=== PATIENT | female | born 1975 | race Caucasian/White ===

== ENCOUNTER 2020-03-16 09:01 | Emergency (ER) | payer BC, SELFPAY ==
[2020-03-16 09:08] VITALS: BP 120/68; PULSE 69; RESP 16; TEMP 36.8; O2SAT 100
--- NOTE | 2020-03-16 09:17 | ED.EYEPROB ---
HPI - Eye Problem General Stated complaint: right eye swollen and red Time Seen by Provider: 03/16/20 09:17 Source: patient and RN notes reviewed History of Present Illness HPI Narrative: Patient is a 44-year-old female that presents the urgent care with complaints of right eye pain and redness. Patient states that it started last night while she was resting in her home. However, she does mention that she was working on her pool yesterday. Patient states that she has had some clear tearing but denies any itchiness. Denies any known trauma or injury. States that it feels better when she pulls the upper eyelid out . No other acute complaints. No acute distress noted. Patient read the plan of care. Related Data Home Medications Medication Instructions Recorded Confirmed flecainide 50 mg PO BID 03/16/20 03/16/20 norgestimate-ethinyl estradiol 1 tablet PO DAILY 03/16/20 03/16/20 [Tri-Sprintec (28)] Allergies Allergy/AdvReac Type Severity Reaction Status Date / Time No Known Allergies Allergy Verified 03/16/20 09:12 Review of Systems Review of Systems: Narrative: CONSTITUTIONAL: Denies fever, chills, or sweats. EYES: Reports of redness, tearing and slight blurry vision to the right eye ENT: Denies rhinorrhea, congestion, sore throat, or otalgia. CARDIOVASCULAR: Denies chest pain, palpitations, or edema. RESPIRATORY: Denies cough or dyspnea. GASTROINTESTINAL: Denies abdominal pain, nausea, vomiting, or diarrhea. GENITOURINARY: Denies dysuria or hematuria. SKIN: Denies rash or itching. MUSCULOSKELETAL: Denies back pain, joint pain, or myalgia. NEUROLOGIC: Denies headache, numbness, or weakness. All other systems reviewed are negative, except as documented in HPI. [facility] Family History Family History (Updated 05/19/16 @ 23:19 by DOCTOR UNKNOWN) Mother Hypertension Family history of diabetes mellitus in first degree relative Sibling Family history of diabetes mellitus in first degree relative Other Family history of blood dyscrasia Family history of malignant neoplasm Social History Social History Smoking status: Never smoker Second hand tobacco smoke exposure: No Smoking end date: 10/22/93 Alcohol intake: never Comments At the time of my signature, I reviewed and agree with the nursing past medical, surgical, social, and family history. There is no relevant family history pertinent to the patient complaint. Exam Narrative: Exam Narrative: GENERAL: This is a well-nourished, well-developed patient, in no apparent distress. HEAD: normocephalic, atraumatic. EYES: PERRL. Sclera clear/white. Vision is grossly intact. Notable pinpoint foreign body noted to the right with mild injected conjunctive a and clear tearing EARS: External ears normal. Hearing grossly intact. NOSE: External nose normal with no obvious nasal discharge, nares without redness, no rhinorrhea. THROAT: Mucous membranes moist NECK: Neck supple SKIN: warm, intact with no suspicious lesions or rash, good texture and turgor. NEURO: awake, alert, and oriented to person, place and time. There were no obvious focal neurologic abnormalities. EXTREMITIES: No clubbing, cyanosis, or edema. Course Vital Signs Vital signs: Vital Signs Temperature 98.3 F 03/16/20 09:08 Pulse Rate 69 03/16/20 09:08 Respiratory Rate 16 03/16/20 09:08 Blood Pressure 120/68 03/16/20 09:08 Pulse Oximetry 100 03/16/20 09:08 Temperature 98.3 F 03/16/20 09:08 Pulse Rate 69 03/16/20 09:08 Respiratory Rate 16 03/16/20 09:08 Blood Pressure 120/68 03/16/20 09:08 Pulse Oximetry 100 03/16/20 09:08 Reviewed Procedures FB Removal Eye Foreign Body #1: Location: eye (R) Evidence of corneal penetration: No Technique: irrigation, eye wash bottle and cotton tip swab Procedure performed under: direct visualization with magnification Patient tolerated procedure: well and no complications Fore
== END 2020-03-16 09:40 | disposition home or self-care (01) ==
PROVIDERS: Emergency Provider Nurse Practitioner Family
DX: T15.01XA Foreign body in cornea, right eye, initial encounter (principal); X58.XXXA Exposure to other specified factors, initial encounter; Z85.828 Personal history of other malignant neoplasm of skin
CPT/HCPCS: 65205; 99213; G0463

== ENCOUNTER 2020-08-17 10:29 | Emergency (ER) | payer BC, SELFPAY ==
[2020-08-17 10:45] VITALS: BP 116/75; PULSE 100; RESP 18; O2SAT 99
--- NOTE | 2020-08-17 11:04 | ED.URI ---
HPI - URI/Sore Throat General Chief Complaint: Upper Respiratory Infection Stated Complaint: head congestion/sneezing/cough Time Seen by Provider: 08/17/20 10:55 Source: patient Mode of arrival: ambulatory Limitations: no limitations History of Present Illness HPI Narrative: Shantal Collado is a 45 yo female with PMH of arthritis who comes to express care with complaints of upper respiratory symptoms that started last Sunday. The symptoms include clear drainage from sinus that started with cough feeling fatigue general discomfort in her maxillary and ethmoid sinuses, low-grade fever, she is taken only Tylenol has not improved. 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 Not feeling well EYES: Denies visual changes, redness, discharge. ENT: rhinorrhea, congestion, sore throat, otalgia. CARDIOVASCULAR: Denies chest pain, palpitations, edema. RESPIRATORY: Denies dyspnea, wheezing, cough GASTROINTESTINAL: Denies abdominal pain, nausea, vomiting, diarrhea. GENITOURINARY: Denies dysuria, hematuria, abnormal discharge SKIN: Denies rash or itching. NEUROLOGIC: Denies numbness, or focal weakness. PSYCHIATRIC: Denies anxiety or depression. [facility] Past Medical History Medical History Arthritis Chlamydia Genital warts PVCs (premature ventricular contractions) Family History Family History Mother Hypertension Family history of diabetes mellitus in first degree relative Diabetes mellitus Sibling Family history of diabetes mellitus in first degree relative Other Family history of blood dyscrasia Family history of malignant neoplasm Social History Social History Smoking status: Never smoker Second hand tobacco smoke exposure: No Smoking end date: 10/22/93 Alcohol intake: never Comments At time of signature, I agree with nursing past medical, surgical, social and family history. There is no relevant family history pertinent to the presenting complaint. Exam Narrative: Exam Narrative: GENERAL: This is a well-nourished, well-developed patient, i appears to not feel well HEAD: normocephalic, atraumatic. EYES: Sclera clear/white. Vision is grossly intact. EARS: External ears normal, auditory canals clear and without drainage, TMs normal without perforation. Hearing grossly intact. NOSE: External nose normal with nasal discharge, nares with redness, no rhinorrhea. THROAT: Mucous membranes moist, posterior pharynx mild redness NECK: Neck supple, non-tender CARDIOVASCULAR: Regular rate and rhythm without murmurs, gallops, or rubs. RESPIRATORY: Clear to auscultation. Breath sounds equal bilaterally. No wheezes, rales, or rhonchi. GASTROINTESTINAL: Abdomen soft, SKIN: warm, intact with no suspicious lesions or rash, good texture and turgor. NEURO: awake, alert, and oriented to person, place and time. There were no obvious focal neurologic abnormalities. Steady gait EXTREMITIES: Normal range of motion. BACK: Nontender without deformity Course Course Emergency Course: Patient here with appropriate respiratory symptoms does not feel has been exposed to Covid and will make that decision for testing on her own Patient tested for strep and flu which both test came back negative Started on Sudafed and Zyrtec with Geoffrey Haas for cough Follow-up with PCP Vital Signs Vital signs: Vital Signs Pulse Rate 100 08/17/20 10:45 Respiratory Rate 18 08/17/20 10:45 Blood Pressure 116/75 10
== END 2020-08-17 11:15 | disposition home or self-care (01) ==
PROVIDERS: Emergency Provider Nurse Practitioner
DX: J06.9 Acute upper respiratory infection, unspecified (principal); M19.90 Unspecified osteoarthritis, unspecified site
CPT/HCPCS: 87081; 87804; 87880; 99213; G0463

== ENCOUNTER 2021-02-01 08:32 | Outpatient (CLI) | payer OTHER, SELFPAY ==
--- NOTE | ~2021-02-01 | MM_ITS ---
EXAMINATION: MM screening david BI w [place] HISTORY: Screening TECHNIQUE: Craniocaudal and mediolateral oblique 3-D tomosynthesis images were obtained and synthetic 2-D images were generated. CAD analysis was submitted and interpreted. COMPARISON: Comparison to multiple prior studies sequentially, with oldest reviewed study dated 11/18. BREAST PARENCHYMAL COMPOSITION: The breasts are extremely dense, which lowers the sensitivity of mamm ography. FINDINGS: There is no evidence of suspicious mass, calcification, or architectural distortion to sugg est malignancy in either breast. There has been no suspicious interval change. IMPRESSION: 1. No mammographic evidence of malignancy. 2. Recommend routine screening mammography in one year. BI-RADS Category 1: Negative Reviewed, dictated and finalized at location A.
== END 2021-02-01 08:33 | disposition home or self-care (01) ==
PROVIDERS: Visit Provider Obstetrics & Gynecology
DX: Z12.31 Encounter for screening mammogram for malignant neoplasm of breast (principal)
CPT/HCPCS: 77063; 77067

== ENCOUNTER 2021-10-02 11:02 | Emergency (ER) | payer OTHER, SELFPAY ==
[2021-10-02 11:07] VITALS: BP 107/79; PULSE 85; RESP 14; TEMP 37; O2SAT 100
--- NOTE | 2021-10-02 12:30 | ED.SKABFB ---
HPI - Skin/Abscess/Foreign Bdy General Chief complaint: Skin/Abscess/Foreign Body Stated complaint: flea bite wounds right arm Time Seen by Provider: 10/02/21 12:23 Source: patient and RN notes reviewed Mode of arrival: ambulatory Limitations: no limitations History of Present Illness HPI narrative: Patient presents today complaining of pain, swelling, drainage, and rash to her right forearm. Patient was bit by multiple fleas 4 days ago from her dog. 2 days ago after scratching profusely, patient developed a rash to her arm that has been weeping ever since. She has been using Benadryl cream and calamine lotion ever since without relief. MD complaint: rash and insect bite/sting Related Data Home Medications Medication Instructions Recorded Confirmed flecainide 50 mg PO BID 03/16/20 07/11/21 cetirizine 10 mg tablet 10 mg PO DAILY PRN 07/11/21 07/11/21 Allergies Allergy/AdvReac Type Severity Reaction Status Date / Time No Known Allergies Allergy Verified 07/11/21 15:07 Review of Systems Review of Systems: CONSTITUTIONAL: Denies body aches, fever, chills, or sweats. EYES: Denies visual changes, redness, or discharge. ENT: Denies rhinorrhea, congestion, sore throat, or otalgia. CARDIOVASCULAR: Denies chest pain, palpitations, or edema. RESPIRATORY: Denies cough or dyspnea. GASTROINTESTINAL: Denies abdominal pain, nausea, vomiting, or diarrhea. GENITOURINARY: Denies dysuria or hematuria. SKIN: + Pruritic rash and swelling to right forearm. MUSCULOSKELETAL: Denies back pain, joint pain, or myalgia. NEUROLOGIC: Denies headache, numbness, tingling, or weakness. PSYCH: Denies depression or anxiety. [facility] Past Medical History Medical History Arthritis Chlamydia Genital warts PVCs (premature ventricular contractions) Family History Family History Mother Hypertension Family history of diabetes mellitus in first degree relative Diabetes mellitus Sibling Family history of diabetes mellitus in first degree relative Other Family history of blood dyscrasia Family history of malignant neoplasm Social History Social History Smoking status: Former smoker Second hand tobacco smoke exposure: No Smoking end date: 10/22/93 Alcohol intake: never Comments At time of signature, I have reviewed and agree with nursing past medical, surgical, social and family history unless otherwise noted. Please see nursing chart for further information. There is no relevant family history pertinent to the presenting complaint Exam Narrative: GENERAL: Well-appearing, well-nourished, and in no acute distress. HEAD: Normocephalic, atraumatic. EYES: EOMI. No redness or drainage. Conjunctivae normal. ENT: Mucous membranes pink and moist. NECK: Normal AROM. CHEST: No respiratory distress. EXTREMITIES: Normal range of motion. No edema. SKIN: Warm, dry. Capillary refill normal. Normal skin turgor. Right forearm is covered and a weeping, erythematous, honey crusting rash that is circumferential and extends to the wrist. Forearm is also slightly edematous. NEURO: No focal deficits. Alert and oriented x3. Gait steady. PSYCH: Normal affect. No signs of depression or anxiety. Course Vital Signs Vital signs: Vital Signs Temperature 98.6 F 10/02/21 11:07 Pulse Rate 85 10/02/21 11:07 Respiratory Rate 14 10/02/21 11:07 Blood Pressure 107/79 10/02/21 11:07 Pulse Oximetry 100 10/02/21 11:07 Temperature 98.6 F 10/02/21 11:07 Pulse Rate 85 10/02/21 11:07 Respiratory Rate 14 10/02/21 11:07 Blood Pressure 107/79 10/02/21 11:07 Pulse Oximetry 100 10/02/21 11:07 Reviewed MDM - Skin/Abscess/Foreign Bdy Differential Diagnosis Differential diagnosis: Likely urticaria, cellulitis, eczema, insect bites, impetigo and
== END 2021-10-02 12:52 | disposition home or self-care (01) ==
PROVIDERS: Emergency Provider Nurse Practitioner; PCP Nurse Practitioner Family
DX: L01.00 Impetigo, unspecified (principal); Z87.891 Personal history of nicotine dependence; M19.90 Unspecified osteoarthritis, unspecified site
CPT/HCPCS: 99213; G0463

== ENCOUNTER 2022-10-29 16:39 | Emergency (ER) | payer OTHER, SELFPAY ==
[2022-10-29 16:47] VITALS: BP 109/72; PULSE 97; RESP 16; TEMP 37.2; O2SAT 100
--- NOTE | 2022-10-29 17:16 | ED.FEMALEGU ---
HPI - Female Genitourinary General Chief complaint: Urogenital-Female Stated complaint: Urinary Problem History of Present Illness HPI Narrative: Patient presents with a 2 week history of low pelvic pressure frequent urination and occasional flank pain. Patient denies any flank pain at this visit no gross hematuria and no pelvic pain at this time. Related Data Home Medications Medication Instructions Recorded Confirmed cyclobenzaprine 10 mg tablet 10 mg PO HS 10/29/22 10/29/22 drospirenone (contraceptive) 4 mg See Rx Instructions .Route .COMPLEX 10/29/22 10/29/22 (28) tablet (Slynd) flecainide 50 mg tablet 50 mg PO BID 10/29/22 10/29/22 ibuprofen 600 mg tablet 600 mg PO TID PRN Pain 10/29/22 10/29/22 Allergies Allergy/AdvReac Type Severity Reaction Status Date / Time No Known Allergies Allergy Verified 10/29/22 17:03 Review of Systems Review of Systems: CONSTITUTIONAL: Denies fever, chills, or sweats. EYES: Denies visual changes, redness, or discharge. ENT: Denies rhinorrhea, congestion, sore throat, or otalgia. CARDIOVASCULAR: Denies chest pain, palpitations, or edema. RESPIRATORY: Denies cough or dyspnea. GASTROINTESTINAL: Denies abdominal pain, nausea, vomiting, or diarrhea. GENITOURINARY: Denies dysuria or hematuria. SKIN: Denies rash or itching. MUSCULOSKELETAL: Denies back pain, joint pain, or myalgia. NEUROLOGIC: Denies headache, numbness, or weakness. PSYCHIATRIC: Denies anxiety or depression. [facility] Past Medical History Medical History Arthritis Chlamydia Genital warts PVCs (premature ventricular contractions) Surgical History Surgical History History of cholecystectomy Family History Family History Mother Hypertension Family history of diabetes mellitus in first degree relative Diabetes mellitus Sibling Family history of diabetes mellitus in first degree relative Other Family history of blood dyscrasia Family history of malignant neoplasm Social History Social History Smoking status: Never smoker Second hand tobacco smoke exposure: No Alcohol intake: never Comments At time of signature, agree with nursing past medical, surgical, social and family history. There is no relevant family history pertinent to the presenting complaint Exam Narrative: GENERAL: Well-appearing, well-nourished, and in no acute distress. HEAD: Normocephalic, atraumatic. EYES: PERRLA and EOMI. ENT: Nares clear, no rhinorrhea or epistaxis. Mucous membranes moist. NECK: Supple. CHEST: Clear to auscultation. No respiratory distress. HEART: Regular rate and rhythm. No murmur heard. Normal peripheral pulses. ABDOMEN: Soft, nontender, nondistended, normal active bowel sounds. No suprapubic pain no flank pain EXTREMITIES: Normal range of motion. No edema. SKIN: Warm, dry, no rash. NEURO: No focal deficits. Alert and oriented x3. [place] Coma Scale Eye Opening: Spontaneous 4 [place] Coma Scale Motor: Obeys Commands 6 [place] Coma Scale Verbal: Oriented 5 Ricardo Coma Scale Total 15 Course Course Level of Care: Express Care Visit Vital Signs Vital signs: Vital Signs Temperature 37.2 C 10/29/22 16:47 Pulse Rate 97 10/29/22 16:47 Respiratory Rate 16 10/29/22 16:47 Blood Pressure 109/72 10/29/22 16:47 Pulse Oximetry 100 10/29/22 16:47 Oxygen Delivery Room Air 10/29/22 16:47 Temperature 37.2 C 10/29/22 16:47 Pulse Rate 97 10/29/22 16:47 Respiratory Rate 16 10/29/22 16:47 Blood Pressure 109/72 10/29/22 16:47 Pulse Oximetry 100 10/29/22 16:47 Oxygen Delivery Room Air 10/29/22 16:47 MDM - Female Genitourinary Differential Diagnosis Differential diagnosis: Likely urinary tract infection, bacterial vaginosis, trichomoniasis, cervici
== END 2022-10-29 17:25 | disposition home or self-care (01) ==
PROVIDERS: Emergency Provider Nurse Practitioner Family; PCP Nurse Practitioner Family
DX: N39.0 Urinary tract infection, site not specified (principal); M19.90 Unspecified osteoarthritis, unspecified site
CPT/HCPCS: 81003; 87086; 99213; G0463

== ENCOUNTER 2022-11-14 10:27 | Outpatient (CLI) | payer OTHER, SELFPAY ==
--- NOTE | ~2022-11-14 | MM_ITS ---
EXAMINATION: MM screening david BI w [place] HISTORY: Screening mammogram TECHNIQUE: Craniocaudal and mediolateral oblique 3-D tomosynthesis images were obtained and synthetic 2-D images were generated. Bilateral rotated lateral CC views. CAD analysis was submitted and interp reted. COMPARISON: 02/01/2021, 08/28/2017, 12/23/2015 bilateral screening mammogram examinations BREAST PARENCHYMAL COMPOSITION: The breasts are extremely dense, which lowers the sensitivity of mamm ography. FINDINGS: There is no evidence of suspicious mass, calcification, or architectural distortion to sugg est malignancy in either breast. There has been no suspicious interval change. IMPRESSION: 1. No mammographic evidence of malignancy. 2. Recommend routine screening mammography in one year. BI-RADS Category 1: Negative Reviewed, dictated and finalized at location A. [facility]
== END 2022-11-14 10:28 | disposition home or self-care (01) ==
LOC: ANHIMG 10:28
PROVIDERS: PCP Nurse Practitioner Family; Visit Provider Obstetrics & Gynecology
DX: Z12.31 Encounter for screening mammogram for malignant neoplasm of breast (principal)
CPT/HCPCS: 77063; 77067

== ENCOUNTER 2024-02-18 15:44 | Outpatient (CLI) | payer OTHER, SELFPAY ==
--- NOTE | ~2024-02-18 | MM_ITS ---
EXAMINATION: MM screening david BI w [place] HISTORY: Screening mammogram TECHNIQUE: Craniocaudal and mediolateral oblique 3-D tomosynthesis images were obtained and synthetic 2-D images were generated. Bilateral rotated lateral CC views. CAD analysis was submitted and interp reted. COMPARISON: November 14, 2022, February 01, 2021 bilateral screening mammogram examination BREAST PARENCHYMAL COMPOSITION: The breasts are extremely dense, which lowers the sensitivity of mamm ography. FINDINGS: There is no evidence of suspicious mass, calcification, or architectural distortion to sugg est malignancy in either breast. There has been no suspicious interval change. IMPRESSION: 1. No mammographic evidence of malignancy. 2. Recommend routine screening mammography in one year. BI-RADS Category 1: Negative Reviewed, dictated and finalized at location A.
== END 2024-02-18 15:45 | disposition home or self-care (01) ==
PROVIDERS: PCP Nurse Practitioner Family; Visit Provider Obstetrics & Gynecology
DX: Z12.31 Encounter for screening mammogram for malignant neoplasm of breast (principal)
CPT/HCPCS: 77063; 77067

== ENCOUNTER 2025-09-12 16:12 | Emergency (ER) | payer OTHER, SELFPAY ==
--- OUTSIDE RECORDS SUMMARY | 2025-09-12 16:14 | XMS_ITS | Data Portability ---
Author Organization [facility] Address [address] [place] [address] Care Team Providers Care Cereal Maker Name Role Phone SOPHIA ROLLE Roofing Supervisor JANIE ROOT Primary Care Provider Assessment Encounter Date Assessment Date Assessment LastModified by Organization Details LastModified Time 09/28/2020 09/28/2020 Verbal consent for telephone visit was obtained and phone call encounter lasted for approximately 15 min including pre/post visit charting. Not available 09/28/2020 10:55:09 Plan of Treatment Reminders Order Date Submit Date Provider Last Modified By Organization Details Last Modified Time Details Appointments None recor ded. Lab TSH, ultra -sens itive , serum 2024 025 ELLIOTT [facility], [address], [place], [address], 5 08:21:50 CMP, serum or plasm a 2024 025 LESLIE [facility], [address], [place], [address], 5 08:21:49 lipid panel , serum 2024 025 LESLIE [facility], [address], [place], [address], 5 08:21:48 CBC 2024 025 LESLIE [facility], [address], [place], [address], 5 08:21:51 TSH, ultra -sens itive , serum 2023 024 LESILEBRETT [facility], [address], [place], [address], 4 14:19:33 CMP, serum or plasm a 2023 024 LESLIE [facility], [address], [place], [address], 4 20:15:13 lipid panel , serum 2023 024 LESLIEBRETT [facility], [address], [place], [address], 4 20:15:13 CBC 2023 024 LESLIE [facility], [address], [place], [address], 4 20:15:14 TSH, ultra -sens itive , serum 2021 022 [facility], [address], [place], [address], 2 08:21:17 CMP, serum or plasm a 2021 022 LESLIE [facility], [address], [place], [address], 2 08:21:16 lipid panel , serum 2021 022 LESLIE Payton, [address], [place], [address], 2 08:21:15 CBC 2021 022 LESLIE Potter, [address], [place], [address], 2 08:21:18 TSH, ultra -sens itive , serum 2020 021 ELLIOTT [facility], [address], [place], [address], 1 07:12:04 CMP, serum or plasm a 2020 021 [facility], [address], [place], [address], 1 07:12:02 lipid panel , serum 2020 021 [facility] [address], [place], [address], 1 07:12:03 CBC 2020 021 [facility], [address], [place], [address], 1 07:12:02 Referral colon & recta l surge on refer ral 2019 020 [email or web address] Not available 1 11:44:05 Procedures colon oscop y scree ken (PROC ) 2024 025 [facility] [place], [address] [place] [address], [address], [place], [address], 5 16:56:46 Surgeries None recor ded. Imaging None recor ded. Medication Orders cyclo benza ruth 10 mg table t [id number] [address] [place], [address], 5 09:05:21 ibupr ofen 600 mg table t 2021 022 [id number], [address] [place], [address], 11:15:00 cyclo benzmirian ruth 10 mg table t 2020 021 [email or web address] [facility][id number], [address] [place], [address], 09:05:21 ibupr ofen 600 mg table t 2020 021 [facility][id number], [address] [place], [address], 11:14:11 Patient TargetsNo targets recorded. Patient Instructions Encounter Date Encounter Id Patient Instructions Last Modified By Organization Details Last Modified Time 09/28/2020 [id number] Increase activit y level to get exercise most days of the week. Work on eating more fresh fruit, veggies and lean protein and less packaged foods. increase water intake Not available 09/28/2020 10:56:34 follow up as needed Not availa ble 09/28/2020 10:56:38 09/29/2021 [id number] Cont on current medications. 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 Not available 09/29/2021 11:01:11 follow up as nee ded, yearly to keep established with provider Not available 09/29/2021 10:49:38 10/03/2022 [id number] premature heartb eat: care instructions Not available 10/03/2022 11:19:36 Cont on current medications. 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 Not available 10/03/2022 11:07:37 follow up as nee ded, yearly to keep established with provider Not available 10/03/2022 11:07:37 11/27/2023 [id number] temporomandibula r disorder: care instructions Not available 11/27/2023 11:05:37 Increase intake of fresh fruits, and vegetables. Avoid packaged foods and fast foods. Follow a low salt diet, drink at least 8-10 8oz glasses of water a day, exercise most days of the week. Take all medications as prescribed. Keep appointments with PCP and all specialists. Not available 11/27/2023 11:06:15 follow up as nee ded, yearly to keep established with provider Not available 11/27/2023 11:06:30 11/27/2024 [id number] premature heartb eat: care instructions Not available 11/27/2024 09:28:20 Increase intake of fresh fruits, and vegetables. Avoid packaged foods and fast foods. Follow a low salt diet, drink at least 8-10 8oz glasses of water a day, exercise most days of the week. Take all medications as prescribed. Keep appointments with PCP and all specialists. Not available 11/27/2024 09:28:27 follow up as nee ded, yearly to keep established with provider [email or web address] Not available 11/27/2024 09:21:12 Reason for Referral Colon & Rectal Surgeon Refer ral for Rectal pain Referring Physician: Janie Root, Family Medicine, Encounter Date: 09/28/2020 Results Created Date Observation Date Name Description Value Unit Range Abnormal Flag Note LastModifiedBy Organization Detail LastModifiedTime 09/29/20 21 09/30/2021 COMP. METAB OLIC PANEL (14) glucose 91 mg/dL 65-99 Not Available [facility] ([facility]) [address] [place], [address], 09/30/2021 07:12:02 09/29/20 21 09/30/2021 COMP. METAB OLIC PANEL (14) BUN 17 mg/dL 6-24 Not Available [facility] ([facility]) [address] [place], [address], 09/30/2021 07:12:02 09/29/20 21 09/30/2021 COMP. METAB OLIC PANEL (14) creatinine 0.70 mg/dL 0.57-1 .00 Not Available [facility] ([facility]) [address] [place], [address], 09/30/2021 07:12:02 12/09/20 21 09/30/2021 COMP. METAB OLIC PANEL (14) eGFR if nonafricn AM 104 mL/mi n/1.7 3 >59 Not Available [facility] ([facility]) [address] [facility], [place], [address], 09/30/2021 07:12:02 09/29/20 21 09/30/2021 COMP. METAB OLIC PANEL (14) eGFR if africn AM 119 mL/mi n/1.7 3 >59 In accor dance with recom menda tions from the NKF-A SN Task force , [facility] is in the proce ss of updat ing its eGFR calcu latio n to the 2020 CKD-E PI creat inine equat ion that estim ates kidne y funct ion witho ut a race varia ble. Not Available [facility] ([facility]) [address] [facility], [place], [address], 09/30/2021 07:12:02 09/29/20 21 09/30/2021 COMP. METAB OLIC PANEL (14) BUN/creatini ne ratio 24 9-23 above high normal Not Available [facility] ([facility]) [address] [place], [address], 09/30/2021 07:12:02 09/29/20 21 09/30/2021 COMP. METAB OLIC PANEL (14) sodium 146 mmol/ L 134-14 4 above high normal Not Available [facility] ([facility]) [address] [place], [address], 09/30/2021 07:12:02 09/29/20 21 09/30/2021 COMP. METAB OLIC PANEL (14) potassium 4.1 mmol/ L 3.5-5. 2 Not Available [facility] ([facility]) [address] [place], [address], 09/30/2021 07:12:02 09/29/20 21 09/30/2021 COMP. METAB OLIC PANEL (14) chloride 110 mmol/ L 96-106 above high normal Not Available [facility] ([facility]) [address] [facility] [place], [address], 09/30/2021 07:12:02 09/29/20 21 09/30/2021 COMP. METAB OLIC PANEL (14) carbon dioxide, total 19 mmol/ L 20-29 below low normal Not Available [facility] ([facility]) [address] [facility] [place], [address], 09/30/2021 07:12:02 09/29/20 21 09/30/2021 COMP. METAB OLIC PANEL (14) calcium 9.2 mg/dL 8.7-10 .2 Not Available [facility] ([facility]) [address] [facility] [place], [address], 09/30/2021 07:12:02 09/29/20 21 09/30/2021 COMP. METAB OLIC PANEL (14) protein, total 7.2 g/dL 6.0-8. 5 Not Available [facility] ([facility]) [address] [facility] [place], [address], 09/30/2021 07:12:02 09/29/20 21 09/30/2021 COMP. METAB OLIC PANEL (14) albumin 4.9 g/dL 3.8-4. 8 above high normal Not Available [facility] ([facility]) [address] [place], [address], 09/30/2021 07:12:02 09/29/20 21 09/30/2021 COMP. METAB OLIC PANEL (14) globulin, total 2.3 g/dL 1.5-4. 5 Not Available [facility] ([facility]) [address] [facility] [place], [address], 09/30/2021 07:12:02 09/29/20 21 09/30/2021 COMP. METAB OLIC PANEL (14) A/G ratio 2.1 1.2-2. 2 Not Available [facility] ([facility]) [address] [facility] [place], [address], 09/30/2021 07:12:02 09/29/20 21 09/30/2021 COMP. METAB OLIC PANEL (14) bilirubin, total 0.6 mg/dL 0.0-1. 2 Not Available [facility] ([facility]) [address] [facility] [place], [address], 09/30/2021 07:12:02 09/29/20 21 09/30/2021 COMP. METAB OLIC PANEL (14) alkaline phosphatase 97 IU/L 44-121 Ple ase note refer ence inter joan blankenship e Not Available [facility] ([facility]) [address] [facility] [place], [address], 09/30/2021 07:12:02 09/29/20 21 09/30/2021 COMP. METAB OLIC PANEL (14) AST (SGOT) 28 IU/L 0-40 Not Available [facility] ([facility]) [address] [facility] [place], [address], 09/30/2021 07:12:02 09/29/20 21 09/30/2021 COMP. METAB OLIC PANEL (14) ALT (SGPT) 18 IU/L 0-32 Not Available [facility] ([facility]) [address] [place], [address], 09/30/2021 07:12:02 09/29/20 21 09/30/2021 CBC, NO DIFFE RENTI AL/PL ATELE T WBC 6.9 x10e3 /uL 3.4-10 .8 Not Available [facility] ([facility]) [address] [facility] [place], [address], 09/30/2021 07:12:02 09/29/20 21 09/30/2021 CBC, NO DIFFE RENTI AL/PL ATELE T RBC 4.84 x10e6 /uL 3.77-5 .28 Not Available [facility] ([facility]) [address] [facility], [place], [address], 09/30/2021 07:12:02 09/29/2009/30/2021 CBC, NO DIFFE RENTI AL/PL ATELE T hemoglobin 14.4 g/dL 11.1-1 5.9 Not Available [facility] ([facility]) [address] [facility], [place], [address], 09/30/2021 07:12:02 09/29/2009/30/2021 CBC, NO DIFFE RENTI AL/PL ATELE T hematocrit 42.8 % 34.0-4 6.6 Not Available [facility] ([facility]) [address] [place], [address], 09/30/2021 07:12:02 09/29/2009/30/2021 CBC, NO DIFFE RENTI AL/PL ATELE T MCV 88 fL 79-97 Not Available [facility] ([facility]) [address] [place], [address], 09/30/2021 07:12:02 09/29/2009/30/2021 CBC, NO DIFFE RENTI AL/PL ATELE T MCH 29.8 pg 26.6-3 3.0 Not Available [facility] ([facility]) [address] [place], [address], 09/30/2021 07:12:02 09/29/2009/30/2021 CBC, NO DIFFE RENTI AL/PL ATELE T MCHC 33.6 g/dL 31.5-3 5.7 Not Available [facility] ([facility]) [address] [place], [address], 09/30/2021 07:12:02 09/29/2009/30/2021 CBC, NO DIFFE RENTI AL/PL ATELE T RDW 12.4 % 11.7-1 5.4 Not Available [facility] ([facility]) [address] [place], [address], 09/30/2021 07:12:02 09/29/20 21 09/30/2021 CBC, NO DIFFE RENTI AL/PL ATELE T NRBC BOOM SUPERVISOR Not Available [facility] ([facility]) [address] [place], [address], 09/30/2021 07:12:02 09/29/20 21 09/30/2021 LIPID PANEL cholesterol, total 157 mg/dL 100-19 9 Not Available [facility] ([facility]) [address] [place], [address], 09/30/2021 07:12:03 09/29/20 21 09/30/2021 LIPID PANEL triglyceride s 58 mg/dL 0-149 Not Available [facility] ([facility]) [address] [place], [address], 09/30/2021 07:12:03 09/29/20 21 09/30/2021 LIPID PANEL HDL cholesterol 47 mg/dL >39 Not Available [facility] ([facility]) [address] [place], [address], 09/30/2021 07:12:03 09/29/20 21 09/30/2021 LIPID PANEL VLDL cholesterol raquel 12 mg/dL 5-40 Not Available [facility] ([facility]) [address] [place], [address], 09/30/2021 07:12:03 09/29/20 21 09/30/2021 LIPID PANEL [facility] 98 mg/dL 0-99 Not Available [facility] ([facility]) [address] [place], [address], 09/30/2021 07:12:03 09/29/20 21 09/30/2021 LIPID PANEL comment: BOOM SUPERVISOR Not Available [facility] ([facility]) [address] [facility], [place], [address], 09/30/2021 07:12:03 09/29/20 21 09/30/2021 TSH RFX ON ABNOR MAL TO FREE T4 TSH 1.010 uIU/m L 0.450- 4.500 Not Available [facility] ([facility]) [address] [facility], [place], [address], 09/30/2021 07:12:04 10/03/20 22 10/04/2022 LIPID PANEL cholesterol, total 155 mg/dL 100-19 9 Not Available [facility] ([facility]) [address] [facility], [place], [address], 10/04/2022 08:21:15 10/03/20 22 10/04/2022 LIPID PANEL triglyceride s 47 mg/dL 0-149 Not Available [facility] ([facility]) [address] [place], [address], 10/04/2022 08:21:15 10/03/20 22 10/04/2022 LIPID PANEL HDL cholesterol 48 mg/dL >39 Not Available [facility] ([facility]) [address] [facility], [place], [address], 10/04/2022 08:21:15 10/03/20 22 10/04/2022 LIPID PANEL VLDL cholesterol raquel 10 mg/dL 5-40 Not Available [facility] ([facility]) [address] [place], [address], 10/04/2022 08:21:15 10/03/20 22 10/04/2022 LIPID PANEL LDL chol calc [facility] 97 mg/dL 0-99 Not Available [facility] ([facility]) [address] [place], [address], 10/04/2022 08:21:15 10/03/20 22 10/04/2022 COMP. METAB OLIC PANEL (14) glucose 79 mg/dL 70-99 Not Available [facility] ([facility]) [address] [place], [address], 10/04/2022 08:21:16 10/03/20 22 10/04/2022 COMP. METAB OLIC PANEL (14) BUN 12 mg/dL 6-24 Not Available [facility] ([facility]) [address] [place], [address], 10/04/2022 08:21:16 10/03/20 22 10/04/2022 COMP. METAB OLIC PANEL (14) creatinine 0.71 mg/dL 0.57-1 .00 Not Available [facility] ([facility]) [address] [place], [address], 10/04/2022 08:21:16 10/03/20 22 10/04/2022 COMP. METAB OLIC PANEL (14) eGFR 105 mL/mi n/1.7 3 >59 Not Available [facility] ([facility]) [address] [place], [address], 10/04/2022 08:21:16 10/03/20 22 10/04/2022 COMP. METAB OLIC PANEL (14) BUN/creatini ne ratio 17 9-23 Not Available [facility] ([facility]) [address] [place], [address], 10/04/2022 08:21:16 10/03/20 22 10/04/2022 COMP. METAB OLIC PANEL (14) sodium 141 mmol/ L 134-14 4 Not Available [facility] ([facility]) [address] [place], [address], 10/04/2022 08:21:16 10/03/20 22 10/04/2022 COMP. METAB OLIC PANEL (14) potassium 4.0 mmol/ L 3.5-5. 2 Not Available [facility] ([facility]) [address] [place], [address], 10/04/2022 08:21:16 10/03/20 22 10/04/2022 COMP. METAB OLIC PANEL (14) chloride 107 mmol/ L 96-106 above high normal Not Available [facility] ([facility]) [address] [place], [address], 10/04/2022 08:21:16 10/03/20 22 10/04/2022 COMP. METAB OLIC PANEL (14) carbon dioxide, total 21 mmol/ L 20-29 Not Available [facility] ([facility]) [address] [place], [address], 10/04/2022 08:21:16 10/03/20 22 10/04/2022 COMP. METAB OLIC PANEL (14) calcium 9.1 mg/dL 8.7-10 .2 Not Available [facility] ([facility]) [address] [place], [address], 10/04/2022 08:21:16 10/03/20 22 10/04/2022 COMP. METAB OLIC PANEL (14) protein, total 7.4 g/dL 6.0-8. 5 Not Available [facility] ([facility]) [address] [place], [address], 10/04/2022 08:21:16 10/03/20 22 10/04/2022 COMP. METAB OLIC PANEL (14) albumin 4.9 g/dL 3.8-4. 8 above high normal Not Available [facility] ([facility]) [address] [place], [address], 10/04/2022 08:21:16 10/03/20 22 10/04/2022 COMP. METAB OLIC PANEL (14) globulin, total 2.5 g/dL 1.5-4. 5 Not Available [facility] ([facility]) [address] [facility], [place], [address], 10/04/2022 08:21:16 10/03/20 22 10/04/2022 COMP. METAB OLIC PANEL (14) A/G ratio 2.0 1.2-2. 2 Not Available [facility] ([facility]) [address] [facility], [place], [address], 10/04/2022 08:21:16 10/03/20 22 10/04/2022 COMP. METAB OLIC PANEL (14) bilirubin, total 0.4 mg/dL 0.0-1. 2 Not Available [facility] ([facility]) [address] [place], [address], 10/04/2022 08:21:16 10/03/20 22 10/04/2022 COMP. METAB OLIC PANEL (14) alkaline phosphatase 95 IU/L 44-121 Not Available [facility] ([facility]) [address] [facility], [place], [address], 10/04/2022 08:21:16 10/03/20 22 10/04/2022 COMP. METAB OLIC PANEL (14) AST (SGOT) 24 IU/L 0-40 Not Available [facility] ([facility]) [address] [place], [address], 10/04/2022 08:21:16 10/03/20 22 10/04/2022 COMP. METAB OLIC PANEL (14) ALT (SGPT) 18 IU/L 0-32 Not Available [facility] ([facility]) [address] [place], [address], 10/04/2022 08:21:16 10/03/20 22 10/04/2022 TSH RFX ON ABNOR MAL TO FREE T4 TSH 1.230 uIU/m L 0.450- 4.500 Not Available [facility] ([facility]) [address] [place], [address], 10/04/2022 08:21:17 10/03/20 22 10/04/2022 CBC, NO DIFFE RENTI AL/PL ATELE T WBC 6.1 x10e3 /uL 3.4-10 .8 Not Available [facility] ([facility]) [address] [facility], [place], [address], 10/04/2022 08:21:17 10/03/20 22 10/04/2022 CBC, NO DIFFE RENTI AL/PL ATELE T RBC 4.53 x10e6 /uL 3.77-5 .28 Not Available [facility] ([facility]) [address] [place], [address], 10/04/2022 08:21:17 10/03/20 22 10/04/2022 CBC, NO DIFFE RENTI AL/PL ATELE T hemoglobin 13.3 g/dL 11.1-1 5.9 Not Available [facility] ([facility]) [address] [place], [address], 10/04/2022 08:21:17 10/03/20 22 10/04/2022 CBC, NO DIFFE RENTI AL/PL ATELE T hematocrit 40.7 % 34.0-4 6.6 Not Available [facility] ([facility]) [address] [place], [address], 10/04/2022 08:21:17 10/03/20 22 10/04/2022 CBC, NO DIFFE RENTI AL/PL ATELE T MCV 90 fL 79-97 Not Available [facility] ([facility]) [address] [place], [address], 10/04/2022 08:21:17 10/03/20 22 10/04/2022 CBC, NO DIFFE RENTI AL/PL ATELE T MCH 29.4 pg 26.6-3 3.0 Not Available [facility] ([facility]) [address] [place], [address], 10/04/2022 08:21:17 10/03/20 22 10/04/2022 CBC, NO DIFFE RENTI AL/PL ATELE T MCHC 32.7 g/dL 31.5-3 5.7 Not Available [facility] ([facility]) [address] [facility], [place], [address], 10/04/2022 08:21:17 10/03/20 22 10/04/2022 CBC, NO DIFFE RENTI AL/PL ATELE T RDW 12.4 % 11.7-1 5.4 Not Available [facility] ([facility]) [address] [facility], [place], [address], 10/04/2022 08:21:17 11/27/19 24 11/27/2023 LIPID PANEL cholesterol, total 154 mg/dL 100-19 9 Not Available [facility] Department [address] [place], [address], 11/27/2023 20:15:13 11/27/19 24 11/27/2023 LIPID PANEL triglyceride s 60 mg/dL 0-149 Not Available [facility] Department [address] [place], [address], 11/27/2023 20:15:13 11/27/19 24 11/27/2023 LIPID PANEL HDL cholesterol 53 mg/dL 40-999 Not Available [facility] Department [address] [place], [address], 11/27/2023 20:15:13 11/27/19 24 11/27/2023 LIPID PANEL VLDL cholesterol raquel 12 mg/dL 5-40 Not Available [facility] Department [address] [place], [address], 11/27/2023 20:15:13 11/27/19 24 11/27/2023 LIPID PANEL LDL chol calc [facility] 97 mg/dL 0-99 Not Available [facility] Department [address] [place] [address], [address], 11/27/2023 20:15:13 11/27/19 24 11/27/2023 COMP. METAB OLIC PANEL (14) glucose 74 mg/dL 70-99 Not Available [facility] Department [address] [place] [address], [address], 11/27/2023 20:15:13 11/27/19 24 11/27/2023 COMP. METAB OLIC PANEL (14) BUN 11 mg/dL 6-24 Not Available [facility] Department [address] [place] [address], [address], 11/27/2023 20:15:13 11/27/19 24 11/27/2023 COMP. METAB OLIC PANEL (14) creatinine 0.50 mg/dL 0.76-1 .27 below low normal Not Available [facility] Department [address] [place] [address], [address], 11/27/2023 20:15:13 11/27/19 24 11/27/2023 COMP. METAB OLIC PANEL (14) eGFR 115 >=60 Units for eGFR value s are mL/mi n/1.7 3 The eGFR Calcu latio n has not been valid ated for patie nts under the age of 18. If test resul ts are displ ayed for a patie nt under the age of 18, disre maximiliano that value . Not Available [facility] Department [address] [place] [address], [address], 11/27/2023 20:15:13 11/27/19 24 11/27/2023 COMP. METAB OLIC PANEL (14) BUN/creatini ne ratio 22 9-23 Not Available [facility] Department [address] [place] [address], [address], 11/27/2023 20:15:13 11/27/19 24 11/27/2023 COMP. METAB OLIC PANEL (14) sodium 141 mmol/ L 134-14 4 Not Available [facility] [address] [place], [address], 11/27/2023 20:15:13 11/27/19 24 11/27/2023 COMP. METAB OLIC PANEL (14) potassium 3.9 mmol/ L 3.5-5. 2 Not Available [facility] [address] [place], [address], 11/27/2023 20:15:13 11/27/19 24 11/27/2023 COMP. METAB OLIC PANEL (14) chloride 106 mmol/ L 96-106 Not Available [facility] Department [address] [place] [address], [address], 11/27/2023 20:15:13 11/27/19 24 11/27/2023 COMP. METAB OLIC PANEL (14) carbon dioxide, total 21 mmol/ L 20-29 Not Available [facility] Department [address] [place] [address], [address], 11/27/2023 20:15:13 11/27/19 24 11/27/2023 COMP. METAB OLIC PANEL (14) calcium 9.2 mg/dL 8.7-10 .2 Not Available [facility] Department [address] [place], [address], 11/27/2023 20:15:13 11/27/19 24 11/27/2023 COMP. METAB OLIC PANEL (14) protein, total 7.0 g/dL 6.0-8. 5 Not Available [facility] Department [address] [place], [address], 11/27/2023 20:15:13 11/27/19 24 11/27/2023 COMP. METAB OLIC PANEL (14) albumin 4.6 g/dL 3.9-4. 9 Not Available [facility] Department [address] [place], [address], 11/27/2023 20:15:13 11/27/19 24 11/27/2023 COMP. METAB OLIC PANEL (14) globulin, total 2.4 g/dL 1.5-4. 5 Not Available [facility] Department [address] [place], [address], 11/27/2023 20:15:13 11/27/19 24 11/27/2023 COMP. METAB OLIC PANEL (14) A/G ratio 1.9 1.2-2. 2 Not Available [facility] Department [address] [place], [address], 11/27/2023 20:15:13 11/27/19 24 11/27/2023 COMP. METAB OLIC PANEL (14) bilirubin, total 0.5 mg/dL 0.0-1. 2 Not Available [facility] Department [address] [place] [address], [address], 11/27/2023 20:15:13 11/27/19 24 11/27/2023 COMP. METAB OLIC PANEL (14) alkaline phosphatase 84 IU/L 44-121 Not Available [facility] Department [address] [place], [address], 11/27/2023 20:15:13 11/27/19 24 11/27/2023 COMP. METAB OLIC PANEL (14) AST (SGOT) 27 IU/L 0-40 Not Available [facility] Department [address] [place] [address], [address], 11/27/2023 20:15:13 11/27/19 24 11/27/2023 COMP. METAB OLIC PANEL (14) ALT (SGPT) 20 IU/L 0-32 Not Available [facility] [address] [place] [address], [id number], 11/27/2023 20:15:13 11/27/19 24 11/27/2023 CBC, NO DIFFE RENTI AL/PL ATELE T WBC 8.4 x10e3 /uL 3.4-10 .8 Not Available [facility] [address] [place], [address], 11/27/2023 20:15:14 11/27/19 24 11/27/2023 CBC, NO DIFFE RENTI AL/PL ATELE T RBC 4.46 x10e6 /uL 3.77-5 .28 Not Available [facility] [address] [place], [address], 11/27/2023 20:15:14 11/27/19 24 11/27/2023 CBC, NO DIFFE RENTI AL/PL ATELE T hemoglobin 12.9 g/dL 11.1-1 5.9 Not Available [facility] [address] [place], [address], 11/27/2023 20:15:14 11/27/19 24 11/27/2023 CBC, NO DIFFE RENTI AL/PL ATELE T hematocrit 39.9 % 34.0-4 6.6 Not Available [facility] Department [address] [place], [address], 11/27/2023 20:15:14 11/27/19 24 11/27/2023 CBC, NO DIFFE RENTI AL/PL ATELE T MCV 90 fL 79-97 Not Available [facility] [address] [place], [address], 11/27/2023 20:15:14 11/27/19 24 11/27/2023 CBC, NO DIFFE RENTI AL/PL ATELE T MCH 28.9 pg 26.6-3 3.0 Not Available [facility] [address] [place], [address], 11/27/2023 20:15:14 11/27/19 24 11/27/2023 CBC, NO DIFFE RENTI AL/PL ATELE T MCHC 32.3 g/dL 31.5-3 5.7 Not Available [facility] [address] [place], [address], 11/27/2023 20:15:14 11/27/19 24 11/27/2023 CBC, NO DIFFE RENTI AL/PL ATELE T RDW 13.3 % 11.5-1 4.5 Not Available [facility] [address] [place], [address], 11/27/2023 20:15:14 11/27/19 24 11/27/2023 CBC, NO DIFFE RENTI AL/PL ATELE T NRBC 0 % 0-0 Not Available [facility] [address] [place], [address], 11/27/2023 20:15:14 11/27/19 24 11/28/2023 TSH RFX ON ABNOR MAL TO FREE T4 TSH 1.720 uIU/m L 0.450- 4.500 Not Available [facility] ([facility]) [address] [place], [address], 11/28/2023 14:19:33 12/18/19 25 12/19/2024 LIPID PANEL cholesterol, total 127 mg/dL 100-19 9 Not Available [facility] ([facility]) [address] [place], [address], 12/19/2024 08:21:48 12/18/19 25 12/19/2024 LIPID PANEL triglyceride s 53 mg/dL 0-149 Not Available [facility] ([facility]) [address] [place], [address], 12/19/2024 08:21:48 12/18/19 25 12/19/2024 LIPID PANEL HDL cholesterol 41 mg/dL >39 Not Available [facility] ([facility]) [address] [place], [address], 12/19/2024 08:21:48 12/18/19 25 12/19/2024 LIPID PANEL VLDL cholesterol raquel 12 mg/dL 5-40 Not Available [facility] ([facility]) [address] [place], [address], 12/19/2024 08:21:48 12/18/19 25 12/19/2024 LIPID PANEL LDL [facility] 74 mg/dL 0-99 Not Available [facility] ([facility]) [address] [facility], [place], [address], 12/19/2024 08:21:48 12/18/19 25 12/19/2024 COMP. METAB OLIC PANEL (14) glucose 80 mg/dL 70-99 Not Available [facility] ([facility]) [address] [place], [address], 12/19/2024 08:21:49 12/18/19 25 12/19/2024 COMP. METAB OLIC PANEL (14) BUN 13 mg/dL 6-24 Not Available [facility] ([facility]) [address] [place], [address], 12/19/2024 08:21:49 12/18/19 25 12/19/2024 COMP. METAB OLIC PANEL (14) creatinine 0.61 mg/dL 0.57-1 .00 Not Available [facility] ([facility]) [address] [place], [address], 12/19/2024 08:21:49 12/18/19 25 12/19/2024 COMP. METAB OLIC PANEL (14) eGFR 109 mL/mi n/1.7 3 >59 Not Available [facility] ([facility]) [address] [place], [address], 12/19/2024 08:21:49 12/18/19 25 12/19/2024 COMP. METAB OLIC PANEL (14) BUN/creatini ne ratio 21 9-23 Not Available [facility] ([facility]) [address] [place], [address], 12/19/2024 08:21:49 12/18/19 25 12/19/2024 COMP. METAB OLIC PANEL (14) sodium 140 mmol/ L 134-14 4 Not Available [facility] ([facility]) [address] [facility] [place], [address], 12/19/2024 08:21:49 12/18/19 25 12/19/2024 COMP. METAB OLIC PANEL (14) potassium 3.9 mmol/ L 3.5-5. 2 Not Available [facility] ([facility]) [address] [facility] [place], [address], 12/19/2024 08:21:49 12/18/19 25 12/19/2024 COMP. METAB OLIC PANEL (14) chloride 105 mmol/ L 96-106 Not Available [facility] ([facility]) [address] [facility] [place], [address], 12/19/2024 08:21:49 12/18/19 25 12/19/2024 COMP. METAB OLIC PANEL (14) carbon dioxide, total 21 mmol/ L 20-29 Not Available [facility] ([facility]) [address] [facility] [place], [address], 12/19/2024 08:21:49 12/18/19 25 12/19/2024 COMP. METAB OLIC PANEL (14) calcium 9.2 mg/dL 8.7-10 .2 Not Available [facility] ([facility]) [address] [place], [address], 12/19/2024 08:21:49 12/18/19 25 12/19/2024 COMP. METAB OLIC PANEL (14) protein, total 6.9 g/dL 6.0-8. 5 Not Available [facility] ([facility]) [address] [place], [address], 12/19/2024 08:21:49 12/18/19 25 12/19/2024 COMP. METAB OLIC PANEL (14) albumin 4.6 g/dL 3.9-4. 9 Not Available [facility] ([facility]) [address] [place], [address], 12/19/2024 08:21:49 12/18/19 25 12/19/2024 COMP. METAB OLIC PANEL (14) globulin, total 2.3 g/dL 1.5-4. 5 Not Available [facility] ([facility]) [address] [place], [address], 12/19/2024 08:21:49 12/18/19 25 12/19/2024 COMP. METAB OLIC PANEL (14) bilirubin, total 0.3 mg/dL 0.0-1. 2 Not Available [facility] ([facility]) [address] [place], [address], 12/19/2024 08:21:49 12/18/19 25 12/19/2024 COMP. METAB OLIC PANEL (14) alkaline phosphatase 80 IU/L 44-121 Not Available [facility] ([facility]) [address] [place], [address], 12/19/2024 08:21:49 12/18/19 25 12/19/2024 COMP. METAB OLIC PANEL (14) AST (SGOT) 29 IU/L 0-40 Not Available [facility] ([facility]) [address] [place], [address], 12/19/2024 08:21:49 12/18/19 25 12/19/2024 COMP. METAB OLIC PANEL (14) ALT (SGPT) 27 IU/L 0-32 Not Available [facility] ([facility]) [address] [place], [address], 12/19/2024 08:21:49 12/18/19 25 12/19/2024 TSH RFX ON ABNOR MAL TO FREE T4 TSH 1.190 uIU/m L 0.450- 4.500 Not Available [facility] ([facility]) [address] [facility], [place], [address], 12/19/2024 08:21:50 12/18/1912/19/2024 CBC, PLATE LET, NO DIFFE RENTI AL WBC 6.5 x10e3 /uL 3.4-10 .8 Not Available [facility] ([facility]) [address] [facility], [place], [address], 12/19/2024 08:21:51 12/18/1912/19/2024 CBC, PLATE LET, NO DIFFE RENTI AL RBC 4.82 x10e6 /uL 3.77-5 .28 Not Available [facility] ([facility]) [address] [facility], [place], [address], 12/19/2024 08:21:51 12/18/1912/19/2024 CBC, PLATE LET, NO DIFFE RENTI AL hemoglobin 14.0 g/dL 11.1-1 5.9 Not Available [facility] ([facility]) [address] [facility], [place], [address], 12/19/2024 08:21:51 12/18/1912/19/2024 CBC, PLATE LET, NO DIFFE RENTI AL hematocrit 42.4 % 34.0-4 6.6 Not Available [facility] ([facility]) [address] [place], [address], 12/19/2024 08:21:51 12/18/1912/19/2024 CBC, PLATE LET, NO DIFFE RENTI AL MCV 88 fL 79-97 Not Available [facility] ([facility]) [address] [place], [address], 12/19/2024 08:21:51 12/18/1912/19/2024 CBC, PLATE LET, NO DIFFE RENTI AL MCH 29.0 pg 26.6-3 3.0 Not Available [facility] ([facility]) [address] [place], [address], 12/19/2024 08:21:51 12/18/19 25 12/19/2024 CBC, PLATE LET, NO DIFFE RENTI AL MCHC 33.0 g/dL 31.5-3 5.7 Not Available [facility] ([facility]) [address] [facility], [place], [address], 12/19/2024 08:21:51 12/18/19 25 12/19/2024 CBC, PLATE LET, NO DIFFE RENTI AL RDW 12.2 % 11.7-1 5.4 Not Available [facility] ([facility]) [address] [facility], [place], [address], 12/19/2024 08:21:51 12/18/19 25 12/19/2024 CBC, PLATE LET, NO DIFFE RENTI AL platelets 307 x10e3 /uL 150-45 0 Not Available [facility] ([facility]) [address] [facility], [place], [address], 12/19/2024 08:21:51 03/31/20 25 04/01/2025 MICRO SCOPI C EXAMI NATIO N WBC 11-30 /hpf 0-5 abnormal Not Available [facility] ([facility]) [address] [facility], [place], [address], 04/03/2025 16:13:01 03/31/20 25 04/01/2025 MICRO SCOPI C EXAMI NATIO N RBC 0-2 /hpf 0-2 Not Available [facility] ([facility]) [address] [facility], [place], [address], 04/03/2025 16:13:01 03/31/20 25 04/01/2025 MICRO SCOPI C EXAMI NATIO N epithelial cells (non renal) 0-10 /hpf 0-10 Not Available [facility] ([facility]) [address] [facility], [place], [address], 04/03/2025 16:13:01 03/31/20 25 04/01/2025 MICRO SCOPI C EXAMI NATIO N casts None seen /lpf nonese en Not Available [facility] ([facility]) [address] [facility], [place], [address], 04/03/2025 16:13:01 03/31/20 25 04/01/2025 MICRO SCOPI C EXAMI NATIO N bacteria Few nonese en/few Not Available [facility] ([facility]) [address] [facility], [place], [address], 04/03/2025 16:13:01 03/31/20 25 04/01/2025 UA WITH CULTU RE REFLE X specific gravity 1.018 1.005- 1.030 Not Available [facility] ([facility]) [address] [facility], [place], [address], 04/03/2025 16:13:02 03/31/20 25 04/01/2025 UA WITH CULTU RE REFLE X pH 6.0 5.0-7. 5 Not Available [facility] ([facility]) [address] [facility], [place], [address], 04/03/2025 16:13:02 03/31/20 25 04/01/2025 UA WITH CULTU RE REFLE X urine-color YELLOW yellow Not Available [facility] ([facility]) [address] [facility], [place], [address], 04/03/2025 16:13:02 03/31/20 25 04/01/2025 UA WITH CULTU RE REFLE X appearance CLEAR clear Not Available [facility] ([facility]) [address] [facility], [place], [address], 04/03/2025 16:13:02 03/31/20 25 04/01/2025 UA WITH CULTU RE REFLE X WBC esterase 1+ negati ve abnormal Not Available [facility] ([facility]) [address] [facility], [place], [address], 04/03/2025 16:13:02 03/31/20 25 04/01/2025 UA WITH CULTU RE REFLE X protein TRACE negati ve/tra ce Not Available [facility] ([facility]) [address] [facility], [place], [address], 04/03/2025 16:13:02 03/31/20 25 04/01/2025 UA WITH CULTU RE REFLE X glucose NEGATI VE negati ve Not Available [facility] ([facility]) [address] [facility], [place], [address], 04/03/2025 16:13:02 03/31/20 25 04/01/2025 UA WITH CULTU RE REFLE X ketones NEGATI VE negati ve Not Available [facility] ([facility]) [address] [facility], [place], [address], 04/03/2025 16:13:02 03/31/20 25 04/01/2025 UA WITH CULTU RE REFLE X occult blood NEGATI VE negati ve Not Available [facility] ([facility]) [address] [facility], [place], [address], 04/03/2025 16:13:02 03/31/20 25 04/01/2025 UA WITH CULTU RE REFLE X bilirubin NEGATI VE negati ve Not Available [facility] ([facility]) [address] [facility], [place], [address], 04/03/2025 16:13:02 03/31/20 25 04/01/2025 UA WITH CULTU RE REFLE X urobilinogen ,semi-qn 0.2 mg/dL 0.2-1. 0 Not Available [facility] ([facility]) [address] [facility], [place], [address], 04/03/2025 16:13:02 03/31/20 25 04/01/2025 UA WITH CULTU RE REFLE X nitrite, urine POSITI VE negati ve abnormal Not Available [facility] ([facility]) [address] [place], [address], 04/03/2025 16:13:02 03/31/20 25 04/01/2025 UA WITH CULTU RE REFLE X microscopic examination SEE BELOW: Micro scopi c was indic ated and was perfo rmed. Not Available [facility] ([facility]) [address] [facility], [place], [address], 04/03/2025 16:13:02 03/31/20 25 04/01/2025 UA WITH CULTU RE REFLE X urinalysis reflex COMMEN T This speci men has refle xed to a Urine Cultu re. Not Available [facility] ([facility]) [address] [facility], [place], [address], 04/03/2025 16:13:02 03/31/20 25 04/03/2025 URINE CULTU RE, ROUTI NE urine culture, routine Final report abnormal Not Available [facility] ([facility]) [address] [facility], [place], [address], 04/03/2025 16:13:03 03/31/20 25 04/03/2025 URINE CULTU RE, ROUTI NE result 1 Escher ichia coli abnormal Cefaz andrew with an CAITLIN <=16 predi cts susce ptibi lity to the oral agent s cefac georges, cefdi amrgi, cefpo doxim e, cefpr ozil, cefur oxime , cepha lexin , and lorac arbef when used for thera py of uncom plica dario urina ry tract infec tions due to E. coli, Klebs iella pneum oniae , and Prote us mirab ilis. Great er than 100,0 00 colon y formi ng units per mL Not Available [facility] ([facility]) [address] [facility], [place], [address], 04/03/2025 16:13:03 03/31/20 25 04/03/2025 URINE CULTU RE, ROUTI NE antimicrobia l susceptibili ty Commen t S = Susce ptibl e; I = Inter media te; R = Resis tant P = Posit nathan; N = Negat nathan MICS are expre ssed in micro grams per mL Antib iotic RSLT# 1 RSLT# 2 RSLT# 3 RSLT# 4 Amoxi cilli n/Cla vulan ic Acid S Ampic illin R Cefaz andrew S Cefep zonia S Cefox itin S Cefpo doxim e S Ceftr iaxon e S Cipro floxa natasha S Ertap enem S Genta micin S Levof loxac in S Merop enem S Nitro furan toin S Piper acill in/Ta zobac eduardo S Tetra cycli ne S Tobra mycin S Trime thopr im/Jenkins lfa S Not Available [facility] ([facility]) [address] [facility], [place], [address], 04/03/2025 16:13:03 10/12/20 20 10/11/2020 US, echo ardio gram No observ ation record ed. [address] [facility] [address] , [place], [address], 10/13/2020 10:01:08 11/14/19 23 11/14/2022 MAMMO , scree ken, digit al, bilat eral No observ ation record ed. [address] [facility] [address], [place], [address], 11/27/2023 11:09:44 Result Notes None recorded. Problems Name Problem SNOMED Code Status Onset Date Resolution Date Notes Provider Name and Address Organization Details Recorded Time Furuncle 791299253 Completed 02/06/2017 Minerva Rashid PA-C Attn: Berna g,[address], [place], [address], [facility] 7 12:17:56 Diarrhea 41139529 Completed 02/06/2017 Minerva Rashid PA-C Attn: Berna kemp,[address] [facility], [place], [address], [facility] 7 12:17:46 Fluid level behind tympanic membrane Completed 02/06/2017 Minerva Rashid PA-C Attn: Berna kemp,[address] [facility], [place], [address], [facility] 7 12:17:41 Ventricular premature complex 146759560 Active 2016 Mnierva Rashid PA-C Attn: Berna kemp,[address] [facility], [place], [address], [facility] 7 12:07:47 Premature atrial contraction 999000695 Active 2016 Minerva Rashid PA-C Attn: Berna kemp,[address] [facility], [place], [address], [facility] 7 12:08:56 Allergic rhinitis 10099450 Active 2016 Minerva Rashid PA-C Attn: Berna kemp,[address] [facility], [place], [address], [facility] 7 12:15:05 Temporomand ibular joint-pain- dysfunction syndrome 713016425 Active 2021 Janie Root APN, [employer]-C Attn: Berna kemp,[address] [facility], [place], [address], [facility] - [facility] 2 11:19:02 Problem Notes Documentation Provider Name and Address Organization Details Recorded Time Consult Note : This document (1 of 1) was received from [email or web address], [email or web address] on 02/25/2024 through Direct Message along with the following message body content: Patient Name: ALLYSSA COLLADO. Patient : 1975. Patient . [facility] 02/26/2024 12:27:25 Procedures Surgical History Date Name Laterality Status Provider Name and Address Organization Details Recorded Time 03/22/20 15 Cholecyst[place] completed [facility]isco[facility] 03/25/2015 17:17:13 12/30/19 15 I&D completed [facility]in [facility] 12/29/2014 16:16:18 Imaging Results None recorded. Procedure Notes None recorded. Medical Equipment None Reported. Allergies No known drug allergies Medications Name Sig Start Date Stop Date Status Note LastModified by Organization Details LastModified Time cyclobenz aprine 10 mg tablet TAKE 1 TABLET BY MOUTH EVERY DAY AT BEDTIME NEEDED 11/27 completed Not Available Not Available Not Available amoxicill in 500 mg capsule 02/06 completed Not Available Not Available Not Available terconazo le 0.4 % vaginal cream 07/30 completed Not Available Not Available Not Available prednison e 10 mg tablet 08/08 completed Not Available Not Available Not Available cetirizin e 10 mg tablet TK 1 T PO QD 09/28 completed Not Available Not Available Not Available ofloxacin 0.3 % eye drops INSTILL 1 DROP INTO THE RIGHT EYE QID 09/28 completed Not Available Not Available Not Available hydrocodo ne 5 mg-acetam inophen 325 mg tablet 02/06 completed Not Available Not Available Not Available prednison e 20 mg tablet 01/29 completed Not Available Not Available Not Available metronida zole 500 mg tablet TK 1 T PO Q 12 H 09/28 completed Not Available Not Available Not Available sulfameth oxazole 800 mg-trimet hoprim 160 mg tablet 07/30 completed Not Available Not Available Not Available Macrobid 100 mg capsule Take 1 capsule every 12 hours by oral route for 5 days. 04/18 completed Not Available Not Available Not Available benzonata te 100 mg capsule TK 1 C PO TID PRF COUGH 09/28 completed Not Available Not Available Not Available doxycycli ne monohydra te 100 mg capsule 08/08 completed Not Available Not Available Not Available cephalexi n 500 mg capsule 10/03 completed Not Available Not Available Not Available warfarin 5 mg tablet 02/06 completed Not Available Not Available Not Available flecainid e 50 mg tablet TAKE 1 TABLET BY MOUTH TWICE A DAY active Not Available Not Available No t Available mupirocin 2 % topical ointment 10/03 completed Not Available Not Available Not Available ibuprofen 600 mg tablet TAKE 1 TABLET 3 TIMES A DAY BY ORAL ROUTE NEEDED. active Not Available Not Available No t Available ondansetr on 4 mg disintegr ating tablet 08/08 completed Not Available Not Available Not Available doxycycli ne hyclate 100 mg tablet Take 1 tablet 3 times a day by oral route for 10 days. 08/08 completed changed to doxycycl ine mono per dr castillo orders Not Available Not Available Not Available Ortho Tri-Cycle n LO (28) 0.18 mg/0.215 mg/0.25 mg-25 mcg tablet Take 1 tablet every day by oral route for 28 days. active Not Available Not Available No t Available Tri-Sprin wes (28) 0.18 mg(7)/0.2 15 mg(7)/0.2 5 mg(7)-0.0 35 mg tablet TK 1 T PO D 09/28 completed Not Available Not Available Not Available metoprolo l tartrate 25 mg tablet Take 0.5 tablets every day by oral route. 01/04 completed Rx by cardiolo gy for symptoma tic PVCs, not tolerate d well due to fatigue Not Available Not Available Not Available Fiber Gummies one daily 09/30 completed Not Available Not Available Not Available Slynd 4 mg (28) tablet TAKE 1 TABLET BY MOUTH DAILY active Not Available Not Available No t Available Paxlovid 300 mg (150 mg x 2)-100 mg tablets in a dose pack TAKE 1 DOSE PK EVERY DAY BY ORAL ROUTE DIRECTED . 11/27 completed Not Available Not Available Not Available Vitals Date Recorded Body height Body mass index (BMI) Body weight Oxygen saturation Heart rate Respiratory rate Body temperature Systolic And Diastolic Provider Name and Address Organization Details Last Updated DateTime 4 167.64 cm 20.2 kg/m2 56589.0 5 g 97 % 94 /min 16 /min 97.5 [degF] 98/60 mm[Hg] KEARA Beckwith [place] [facility] 4 10:43:13 Date Recorded Body height Body mass index (BMI) Body weight Oxygen saturation Respiratory rate Body temperature Heart rate Systolic And Diastolic Provider Name and Address Organization Details Last Updated DateTime 5 167.64 cm 19.7 kg/m2 71029.2 7 g 97 % 16 /min 97.5 [degF] 92 /min 100/68 mm[Hg] KEARA Beckwith [facility] 5 09:07:01 Date Recorded Body height Provider Name an d Address Organization Details Last Updated DateTime 09/28/2020 167.64 cm Danielle Mcgee MA [facility] 2019 10:32:15 Date Recorded Body height Body mass index (BMI) Body weight Oxygen saturation Heart rate Respiratory rate Body temperature Systolic And Diastolic Provider Name and Address Organization Details Last Updated DateTime 1 167.64 cm 20.2 kg/m2 16635.0 5 g 99 % 106 /min 16 /min 97.5 [degF] 100/72 mm[Hg] Margarette Kyle [facility] 1 10:32:59 Date Recorded Body height Body mass index (BMI) Body weight Oxygen saturation Heart rate Respiratory rate Body temperature Systolic And Diastolic Provider Name and Address Organization Details Last Updated DateTime 2 167.64 cm 20 kg/m2 02136.4 5 g 97 % 108 /min 16 /min 97.5 [degF] 98/60 mm[Hg] Margarette Kyle [facility] 2 10:50:02 Social History Question Answer Notes LastModified by Organizat ion Details LastModified Time Tobacco Smoking Status Never Smoker Monique Mace MA [email or web address], [facility] 09/29/2014 10:57:43 Do You Have An Advance Directive? No Information not available 09/30/2019 Are You Blind Or Do You Have Difficulty Seeing? No [email or web address] Information not available 09/29/2021 What Is Your Level Of Caffeine Consumption? Occasional Information not available 08/08/2016 How Much Tobacco Do You Chew? None Information not available 01/29/2019 In The 14 Days Before Symptom Onset, Have You Had Close Contact With A Laboratory-confir med COVID-19 While That Case Was Ill? No [email or web address] Information not available 10/03/2022 In The 14 Days Before Symptom Onset, Have You Had Close Contact With A Person Who Is Under Investigation For COVID-19 While That Person Was Ill? No Information not available 09/28/2020 Have You Been To An Area Known To Be High Risk For COVID-19? No Information not available 09/28/2020 Are You Deaf Or Do You Have Serious Difficulty Hearing? No [email or web address] Information not available 09/29/2021 What Type Of Diet Are You Following? REGULAR Information not available 08/08/2016 Which Illicit Or Recreational Drugs Have You Used? None Information not available 01/29/2019 Education 2 Year College Informatio n not available 09/30/2019 Are There Any Guns Present In Your Home? No Information not available 09/30/2019 Hard Of Hearing Or Deaf In One Or Both Ears? No Information not available 09/28/2020 Legally Blind In One Or Both Eyes? No Information no t available 09/28/2020 Marital Status Informati on not available 08/08/2016 What Was The Date Of Your Most Recent Tobacco Screening? 11/27/2024 Information not available 11/27/2024 How Many Children Do You Have? 1 [email or web address] Information not available 10/03/2022 Performs Monthly Self-breast Exam? Yes Information no t available 08/08/2016 What Is Your Relationship Status? [email or web address] Information not available 10/03/2022 Do You Use Your Seat Belt Or Car Seat Routinely? Yes [email or web address] Information not available 09/29/2021 Seat Belts Used Routinely Yes Information not available 09/30/2019 Smoke Alarm In Home Yes Information not available 09/30/2019 Do You Have Smoke And Carbon Monoxide Detectors In Your Home? Yes [email or web address] Information not available 09/29/2021 Are You Passively Exposed To Smoke? No [email or web address] Information no t available 09/29/2021 How Much Tobacco Do You Smoke? No Information not available 09/30/2019 General Stress Level Medium Information not available 08/08/2016 Do You Use Sunscreen Routinely? Yes Information not available 09/30/2019 Has Tobacco Cessation Counseling Been Provided? Yes [email or web address] Information not available 10/03/2022 On What Date Was Tobacco Cessation Counseling Provided? 11/27/2024 Information not available 11/27/2024 How Many Years Have You Smoked Tobacco? 0 Information not available 09/30/2019 Sex: Female Functional Status Question Answer Note LastModified by Organizat ion Details LastModified Time Do you use any illicit or recreational drugs? No [email or web address] Information not available 09/29/2021 Do you or have you ever used any other forms of tobacco or nicotine? No [email or web address] Information not available 09/29/2021 What is your level of alcohol consumption? None [email or web address] Information not available 09/29/2014 Do you or have you ever used smokeless tobacco? Never used [email or web address] tobacco Information not available 09/30/2019 Are you currently employed? Yes [email or web address] Information not available 09/29/2021 Are you able to care for yourself independently? Yes [email or web address] Information not available 09/29/2021 What is your occupation? [employer] [email or web address] Information not available 09/29/2021 Do you or have you ever used e-cigarettes or vape? Never used electronic cigarettes Information not available 09/30/2019 What is your exercise level? None Information not available 11/27/2023 Mental Status Question Answer Note LastModified by Organization D etails LastModified Time Do you feel stressed (tense, restless, nervous, or anxious, or unable to sleep at night)? [email or web address] Information not available 09/29/2021 Family History Relationship Description Onset Age of this Age Resolved Age Notes LastModified by Organization Details LastModified Time Mother Diabetes mellitus [email or web address] Not available 06/2014 10:57:43 Father Malignant neoplasm of prostate cgrandberry Not available 06/2014 10:57:43 Medical History Condition Response Coronary Artery Disease N Other N Atrial Fibrillation N High Blood Pressure N Depression N COPD N Blood Clots N Anxiety Disorder N Muscle, Joint, or Bone Problems N Acid Reflux (GERD) N Cancer N Stroke N Headaches N Kidney or Bladder Problems N Skin Problems N Asthma N Allergies N Hepatitis N High Cholesterol N Liver Disease N Thyroid Problems N GI Problems N Anemia N Heart Attack (NM) N Diabetes N Seizures/Epilepsy N Heart Failure N Osteoporosis N Gynecological History Statement/Question Response Date of LMP 06/24/2019 Menses Monthly Y Duration of Flow (days) 5 Age at Menarche 15 Current Control Method BCPs Age at First Child 21 LMP Approximate Obstetrics History GPAL:G 2 P 2 0 0 2 Type Value Full Term 2 Living 2 Total 2 Immunizations Vaccine Type Date Status Note Provider Name and Address Organization Details Recorded Time COVID-19, mRNA, LNP-S, PF, 30 mcg/0.3 mL dose 12/18/19 21 completed Janie Root COILED TUBING SUPERVISOR, TAPE WEAVER-C Attn: Accounting[address] [place], [address], [facility] [place] 10/03/2022 11:08:09 COVID-19, mRNA, LNP-S, PF, 30 mcg/0.3 mL dose 01/09/20 21 completed Janie Root APN, TAPE WEAVER-C Attn: Accounting[address] [place], [address], [facility] 10/03/2022 11:08:09 Influenza, split virus, quadrivalent, preservative 08/10/20 16 completed Not Available [facility] 11/08/2019 02:39:52 Influenza, split virus, quadrivalent, preservative 07/30/20 17 completed Not Available [facility] 11/08/2019 02:34:22 Influenza, split virus, quadrivalent, preservative 09/30/20 19 completed Not Available [facility] 11/08/2019 02:47:23 Influenza, split virus, quadrivalent, preservative 09/28/20 20 cancelled patient objection EUGENIO MitchellN, TAPE WEAVER-C Attn: Accounting[address] [place], [address], [facility] [place] 09/28/2020 10:56:40 Past Encounters Encounter ID Performer Location Encounter Start Date Encounter Closed Date Diagnosis/Indication Diagnosis SNOMED-CT Code Diagnosis ICD10 Code Diagnosis IMO Codes Diagnosis [place] [id number] [facility] [place] [address] [place] [address] 09/29/2014 10:14:27 09/29/2014 12:21:43 Diarrhea 22091508 Likely Viral Diarrhea. Diarrhea resolved now. No abdominal cramps now. No Nausea. Advised patient to drink plenty of oral fluids and call office if she developed any symptoms. [id number] MD Constantine Burns (Adult Med) [address] [place] [address] 12/29/2014 15:31:23 12/29/2014 16:46:35 Furuncle 206556003 Antibacter ial cleanser in shower. Patient to wash hands frequently . Starting doxycyclin e 100mg po tid for 10 days. Sending swab for aerobic and anerobic culture. Concerned for MRSA. Patient states both her and her have been getting these for months. [id number] Karin Flores [facility] [place] (Adult Med) [address] [place] [address] 01/27/2016 11:30:04 01/27/2016 17:11:05 Fluid level behind tympanic membrane 119674549 H65.01 Restart flonase, use antihistam ine, and NSAIDs prn. FU prn. [id number] NORIS Brush (Adult Med) [address] [place] [address] 08/08/2016 15:43:36 08/10/2016 10:49:14 Irregular heart beat 408563276 R00.8 PVC noted on EKG, trigeminy. Assoc fatigue Administra tion of influenza vaccine 83234103 Z23 Irritable bowel syndrome 24888484 K58.9 Body mass index less than 20 724062536 Z68.1 [id number] NORIS Brush (Adult Med) [address] [place] [address] 02/06/2017 09:55:26 02/06/2017 15:31:25 Ventricular premature complex 418611141 I49.3 s/p cardiac cath, controlled w/ flecainaid e Premature atrial contraction 396721846 I49.1 s/p cardiac cath, controlled w/ flecainaid e Allergic rhinitis 717376 04 J30.1 cont zyrtec and restart flonase daily Body mass index less than 20 896607826 Z68.1 weight is stable, gained weight since 2014. pt is eating a heart healthy diet. [id number] [facility] [place] [address] [place] [address] 2017 14:53:15 2017 18:01:05 Recurrent urinary tract infection 139266458 N39.0 try to avoid loose stools w/ fiber supplement s, call if any sxs. will check UA today when she is asymptomat ic to make sure there is no occult blood or other abnormalit ies. Irregular bowel habits 251771618 R19.4 linked to her menstrual cycle. cont fiber gummies. 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 Body mass index less than 20 487940198 Z68.1 weight fluctuates , but currently increased, cont to follow healthy diet, maintain 120 lbs. [id number] MD Irais Cooperhalto (Adult Med) [address] [place] [address] 01/29/2018 10:54:44 01/29/2018 14:24:39 Ventricular premature complex 086291702 I49.3 cont to follow w/ cardiology ; RRR on flecainide , no side effect from meds. discussed w/ patient that if/when cardiology is ready to transition her care to PCP for drug monitoring , we can do so here. Otherwise f/u annually for preventive care. Administra tion of diphtheria, pertussis, and tetanus vaccine 076382019 Z23 patient is not sure, but likely when she was in 2007. We will get records from her OB and if that is the case, she will need vaccine this year. Body mass index less than 20 295103768 Z68.1 weight fluctuates , but stable from last visit at 116. cont to follow healthy diet, maintain around 120 lbs. Irregular bowel habits 198178539 R19.4 more regular BMs since taking fiber gummies. 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 [id number] MD Constantine Cooper (Adult Med) [address] [facility] [place] [address] 01/29/2019 09:25:26 01/30/2019 09:31:30 Pain of left hip joint 1796518169 78947 M25.552 had left pelvic fx 15yrs ago, but this pain has been present since Jul. Last x-ray of hip was maybe 9 years ago. NO known injury [facility] examination 179801532 Z00.00 We will send lab results to her cardiologi st ([facility]). Ventricula r premature complex 900432942 I49.3 cont to follow w/ cardiology ; RRR on flecainide , no side effect from meds. discussed w/ patient that if/when cardiology is ready to transition her care to PCP for drug monitoring , we can do so here. Otherwise f/u annually for preventive care. [id number] MD Constantine Cooper (Adult Med) [address] [facility] [place] [address] 03/12/2019 09:08:35 03/13/2019 15:11:31 Trochanteric bursitis of left hip 9187919558 92759 M70.62 improving. Reviewed x-ray results, no acute hip findings, recommend she cont to stay active, OTC analgesics PRN. Given hip exercises to start at home. Call if pain worsens. 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 Lumbago with sciatica 20 3995163 M54.40 aleve or other otc med prn [id number] MD Constantine Villanueva (Adult Med) [address] [place] [address] 09/28/2020 08:21:34 09/29/2020 13:51:05 Influenza vaccination declined 095343083 Z28.21 Rectal pain 85012476 K62 .89 increased rectal pain with bm, some bleeding on wiping, nothing external as reported by pt, has not yet tried any otc treatment but will; dwp referral to specialist ;no abd pain, no cramping or other issuesadvi sed pt to increase fluids since stool is somewhat hard at times [id number] MD Constantine Villanueva (Adult Med) [address] [place] [address] 09/29/2021 10:22:22 09/30/2021 13:04:08 Adult health examination 377667990 Z00.01 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 Ventricula r premature complex 647224194 I49.3 cont with cardiology as planned Screening for malignant neoplasm of colon 808236272 Z12.11 Health Concerns Section Related Observation LastModified by Organization Detai ls LastModified Time None Recorded Concern Status LastModified by Organization Details LastModified Time None Recorded Advance Directives Directive N: Payers Insurance Date Sequence Insurance Name Policy Number Policy Andrade Covered Member ID Andrade Member ID Guarantor Name 04/06/2025 1 [facility] (O) Allyssa L Shewmake [id number] Allyssa L Shewmake 04/06/2025 1 *SELF PAY* Me dara L Shewmake 10/29/2023 1 [facility] [id number] Allyssa Shewmake [id number] Allyssa L Shewmake 10/29/2023 1 [facility] ([facility] [id number] Allyssa Shewmake [id number] Allyssa L Shewmake 10/29/2023 1 [facility] (MEDICAID HMO) [id number] Allyssa Shewmake [id number] Allyssa L Shewmake 10/29/2023 1 [place] Allyssa Shewmake [id number] Allyssa L Shewmake 10/29/2023 1 [facility] - [place] PRIOR TO 2021 (MEDICAID REPLACEMENT - HMO) Allyssa Shewmake [id number] Allyssa L Shewmake 10/29/2023 1 [facility] - DOS ON OR AFTER 21 (MEDICAID REPLACEMENT - HMO) Allyssa Shewmake [id number] Allyssa L Shewmake 11/26/2024 1 [facility] - DOS ON OR AFTER 21 (MEDICAID REPLACEMENT - HMO) Allyssa Shewmake [id number] Allyssa L Shewmake 04/06/2025 1 [facility] [id number] Toro Shewmake [id number] Allyssa Hamptonnico 10/29/2023 1 [facility] - DOS PRIOR TO 20 (O) Allyssa Collado [id number] Allyssa Collado Notes Date Note Type Note Provider Name and Address Organization Details Recorded Time 09/28/2020 text/html c/o painful bowel movement, when it comes out, bleeding when she wipes, hx of hemorrhoids, feeling like their is a blockage or tear down there; daily BM with no abd pain; stool tends to be more firm than soft; pain started about a month ago Janie Root APN, FNP-C Attn: [address] [place], [address], [facility] [place] 09/28/2020 10:57:26 09/29/2021 text/html pt c/o constant ringing in her ears and lockjaw. lockjaw started in 04/2021. notices the ringing mainly at night. clinching at HS, did wear mouth guard when it was bad; no other c/o Janie Root APN, ELIZABETH-C Attn: [address] [place], [address], [facility] [place] 09/29/2021 11:02:14 10/03/2022 text/html no complaints, never got muscle realxer for her jaw but would still like it, sees cardio in April; Janie Root APN, FNP-C Attn: [address] [place], [address], [facility] 10/03/2022 11:21:11 11/27/2023 text/html no complaints,sees cardio Janie Root APN, FNP-C Attn: [address] [place], [address], [facility] 11/27/2023 11:10:33 11/27/2024 text/html no complaints,sees cardio Janie Root APN, FNP-Adele Attn: [address] [place], [address], [facility] 11/27/2024 09:31:22 OBGyn Episode No OBEpisode recorded.
[2025-09-12 16:28] VITALS: BP 127/74; PULSE 75; RESP 16; TEMP 36.6; O2SAT 100
--- NOTE | 2025-09-12 16:29 | ED.FEMALEGU ---
HPI - Female Genitourinary General Chief complaint: MILL HAND Stated complaint: Vaginal Issue Time Seen by Provider: 09/12/25 16:29 Source: patient, RN notes reviewed and old records reviewed Mode of arrival: ambulatory Limitations: no limitations History of Present Illness HPI Narrative: 50 year old female who presents to [facility] with complaints of vaginal bleeding today and breast tenderness with some lower back discomfort. Patient reports that she had been on control till December and then went off of it and never had any further menses since then till started bleeding today. Patient reports that she had labs done in June showing her FSH 76 indicating she was post-menopausal. Patient reports that her and her were split up for a short time and she wants STD testing,urine test and urine done and she will call her GEOGRAPHIC ANALYST on Sunday. MD elicited complaint: other (vaginal bleeding) Pertinent past history: other (FSH 78 results indicates that she is post menopausal) Onset (ago): day(s) (started today) Location of symptoms: vaginal, low back and other (breast tenderness) Severity: moderate Quality of pain: aching Vaginal discharge: none Vaginal bleeding: scant (small) Related Data Allergies Allergy/AdvReac Type Severity Reaction Status Date / Time No Known Allergies Allergy Verified 06/25/25 12:08 Review of Systems Review of Systems: CONSTITUTIONAL: Denies fever, chills, or sweats. CARDIOVASCULAR: Denies chest pain, palpitations, or edema. RESPIRATORY: Denies cough or dyspnea. GASTROINTESTINAL: Denies abdominal pain, nausea, vomiting, or diarrhea. GENITOURINARY: Reports no dysuria, frequency, urgency. Denies flank pain or hematuria.reports abnormal vaginal bleeding and low back pain and also breast tenderness. SKIN: Denies rash or itching. MUSCULOSKELETAL:reports low back pain or myalgia. Denies CVA tenderness NEUROLOGIC: Denies headache All systems reviewed & are unremarkable except as noted in HPI and below PMFSH Past Medical History Medical History Arthritis Genital warts PVCs (premature ventricular contractions) Surgical History Surgical History History of cholecystectomy Family History Family History Mother Hypertension Family history of diabetes mellitus in first degree relative Diabetes mellitus Sibling Family history of diabetes mellitus in first degree relative Other Family history of blood dyscrasia Family history of malignant neoplasm Social History Social History Smoking status: Never smoker Second hand tobacco smoke exposure: No Alcohol intake: never Substance use: never Lack of Transportation: No Lack of Food: Never True Current Housing: I Have Housing Concerned About Future Housing: No Difficulty Paying Gas/Electric Bills: No Difficulty Paying for Meds: No Currently Unemployed: No Education: Associate Degree Difficulty w/ Childcare or Family Care: No Gender identity (if verbalized by the patient): Female Sexual Orientation (if Verbalized by the Patient): Straight or Heterosexual Spiritual care concerns: No Comments At time of signature, agree with nursing past medical, surgical, social and family history. There is no relevant family history pertinent to the presenting complaint Exam Narrative: GENERAL: Well-appearing, well-nourished, and in no acute distress. HEAD: Normocephalic, atraumatic. NECK: Supple.no lymphadenopathy CHEST: Clear to auscultation. No respiratory distress.SAO2 100% on room air HEART: Regular rate and rhythm. No murmur heard. Normal peripheral pulses. ABDOMEN: Soft, nontender, nondistended, normal active bowel sounds. No CVA tenderness, abnormal vaginal bleeding with breast tenderness and low back pain EXTREMITIES: Normal range of motion. No edema. SKIN: Warm, dry, no rash. NEURO: No focal deficits. Alert and oriented x3. Course Course Emergency Course: Patient is aware of diagnosis, understands and agrees to treatment plan.? Anticipatory guidance given.? Patient agrees to follow-up as directed and is aware of reasons to seek care at the emergency department. Portions of this record may have been created with voice recognition software Level of Care: Express Care Visit Vital Signs Vital signs: Vital Signs Temperature 36.6 C 09/12/25 16:28 Pulse Rate 75 09/12/25 16:28 Respiratory Rate 16 09/12/25 16:28 Blood Pressure 127/74 09/12/25 16:28 Pulse Oximetry 100 09/12/25 16:28 Oxygen Delivery Room Air 09/12/25 16:28 Temperature 36.6 C 09/12/25 16:28 Pulse Rate 75 09/12/25 16:28 Respiratory Rate 16 09/12/25 16:28 Blood Pressure 127/74 09/12/25 16:28 Pulse Oximetry 100 09/12/25 16:28 Oxygen Delivery Room Air 09/12/25 16:28 reviewed MDM - Female Genitourinary MDM Narrative Medical decision making narrative: Exam findings and UA show no acute concerns or changes; patient is non-toxic appearing and is in no distress.? Patient is appropriate for outpatient treatment and follow-up. Differential Diagnosis Differential diagnosis: Likely cervicitis, vaginitis, ruptured ovarian cyst, cystitis, dysmenorrhea and other (abnormal vaginal bleeding) Medical Records Attestation: I reviewed the patient's medical records. Lab Data Attestation: I reviewed the patient's lab results. Lab results narrative: urine dip reviewed and culture sent, urine negative urine dip for GC, Chlamydia, and trichomonas sent Labs: Lab Results 09/12/25 Range/Units 16:56 C. trachomatis (PCR) Not detected (NOT DETECTE) N. gonorrhoeae (PCR) Not detected (NOT DETECTE) T. vaginalis (PCR) Not detected (NOT DETECTE) Critical Care Time Critical Care Time Critical Care Time: No Discharge Plan Discharge Clinical Impression: Post-menopause bleeding Patient Disposition: Home Condition: Stable Instructions: Antibiotic Form, Abnormal (Dysfunctional) Uterine Bleeding (ED) Additional Instructions: Increase fluids especially cranberry juice and water Avoid caffeine and carbonated beverages Tylenol/ibuprofen for pain or fever Follow-up with her primary care provider if further problems or concerns Recheck if you have fever over 101, nausea and vomiting. monitor amount of vaginal bleeding and call OB doctor on Sunday or increased bleeding go to ED If your symptoms persist, change or worsen significantly before you can contact your personal physician then please, without delay, go to the emergency department for further evaluation. Follow-up with PCP in 7-10 days or sooner if needed Follow up with PCP soon in regards to your blood pressure which is elevated above threshold for referral. Blood pressure above 120/80 may indicate pre-hypertension. 127/74 You will be notified of STD testing tomorrow and treated if anything positive. Patient Language: Malay Follow-up/Referrals: Yañez,EUGENIO DeviN [Primary Care Provider, Unknown] Time of Disposition: 17:19 Quality [place] Coma Scale Eyes: Open Verbal: Oriented and Alert Motor: Follows Commands [place] Coma Total Score: 15
[2025-09-12 21:19] LABS: Trichomonas Vag PCR NOT DETECTED (NOT DETECTE)
[2025-09-14 11:49] LABS: BEDSIDEPREGUCG Negative (Negative); EDUAAPPEAR Clear; EDUABILI Negative (Negative); EDUABLOOD Trace (Negative); EDUACOLOR1 Yellow; EDUAGLUCOSE Negative (Negative); EDUAKETONE 1+ (Negative); EDUALEUKO Negative (Negative); EDUANITRATE Negative (Negative); EDUAPH 6.0; EDUAPROTEIN Negative (Negative); EDUASPGRAVITY 1.010; EDUAUROBILI 0.2
== END 2025-09-12 17:26 | disposition home or self-care (01) ==
PROVIDERS: Emergency Provider Registered Nurse; PCP Nurse Practitioner Family
DX: N95.0 Postmenopausal bleeding (principal); Z11.3 Encounter for screening for infections with a predominantly sexual mode of transmission; M19.90 Unspecified osteoarthritis, unspecified site
CPT/HCPCS: 81003; 81025; 87086; 87491; 87591; 87661; 99213; G0463

== ENCOUNTER 2025-09-30 14:29 | Outpatient (CLI) | payer OTHER, SELFPAY ==
--- NOTE | ~2025-09-30 | US_ITS ---
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 Findings: Uterus: Uterus anteverted 7.8 x 3.5 x 5.1 cm, fundal fibroid 0.5 x 0.5 cm. . Endometrium 3.6 mm. Right Ovary:Right ovary 1.7 x 1.1 x 1.7 cm, no adnexal mass, normal flow. Left Ovary: Left ovary is not identified. Free Fluid: None Impression: 1. Probable fundal fibroid. No etiology to explain the patient's symptoms. Reviewed, dictated and finalized at location P. SHOP WORKER Impression: 1. Probable fundal fibroid. No etiology to explain the patient's symptoms.
== END 2025-09-30 14:30 | disposition home or self-care (01) ==
PROVIDERS: PCP Nurse Practitioner Family; Visit Provider Nurse Practitioner Family
DX: N95.0 Postmenopausal bleeding (principal)
CPT/HCPCS: 76830; 76856